=== PATIENT | male | born 1945 | race Caucasian/White ===

== ENCOUNTER 2023-12-31 08:30 | Outpatient (CLI) | payer MEDICARE, OTHER | END 2023-12-31 08:31 | disposition home or self-care (01) | LOC: RAD 08:30 | PROVIDERS: ATTEND Internal Medicine Critical Care Medicine | DX: R06.00 Dyspnea, unspecified (principal); I51.7 Cardiomegaly | CPT/HCPCS: 71046 ==

== ENCOUNTER 2024-02-23 15:46 | Outpatient (CLI) | payer MEDICARE, OTHER | END 2024-02-23 15:47 | disposition home or self-care (01) | LOC: ULT 15:46 | PROVIDERS: ATTEND Family Medicine | DX: N50.89 Other specified disorders of the male genital organs (principal); N43.3 Hydrocele, unspecified | CPT/HCPCS: 76870; 93976 ==